=== PATIENT | female | born 1950 | race Caucasian/White ===

== ENCOUNTER 2020-03-20 15:38 | Emergency (ER) | payer MEDICARE ==
[~2020-03-20] VITALS: Ht 162.6 cm; Wt 68.2 kg
[2020-03-20 16:04] VITALS: TEMP 98.4
[2020-03-20 17:48] VITALS: BP 107/65; PULSE 73
== END 2020-03-20 17:51 | disposition home or self-care (01) ==
LOC: COL.ER 15:38
DX: S06.0X0A Concussion without loss of consciousness, initial encounter (principal); S01.81XA Laceration without foreign body of other part of head, initial encounter; I10 Essential (primary) hypertension; E78.00 Pure hypercholesterolemia, unspecified; Z23 Encounter for immunization; W01.198A Fall on same level from slipping, tripping and stumbling with subsequent striking against other object, initial encounter; Y92.830 Public park as the place of occurrence of the external cause